=== PATIENT | male | born 1955 | race Two or more races ===

== ENCOUNTER 2018-01-17 20:43 | Inpatient (IN) | payer OTHER ==
[~2018-01-17] VITALS: Ht 172.7 cm; Wt 73.2 kg
[2018-01-17] MEDS ORDERED: PROPOFOL 10 MG/ML, 20ML ONE ×2 (20:47→21:08)
[2018-01-17] MEDS ORDERED: OCTREOTIDE 500 MCG in SODIUM CHLORIDE 0.9% 249 ML IV PRN (21:25)
[2018-01-17] MEDS ORDERED: SODIUM CHLORIDE FLUSH 10ML SYR IVF ONE (21:30)
[2018-01-17] MEDS ORDERED: PLEASE ENTER ALLERGIES MC SCH (21:30)
[2018-01-17] MEDS ORDERED: PROPOFOL 10 MG/ML, 20ML IVPush ONE (21:30)
[2018-01-17] MEDS ORDERED: CEFTRIAXONE PMX 2GM/50ML 50 ML IVPB ONE (22:00)
[2018-01-17] MEDS ORDERED: ONDANSETRON ODT 4 MG PO PRN (22:30)
[2018-01-17] MEDS ORDERED: POLYETHYLENE GLYCOL 17 GM PACKET PO PRN (22:30)
[2018-01-17] MEDS ORDERED: BISACODYL 10 MG SUPP PR PRN (22:30)
[2018-01-17] MEDS ORDERED: hydrALAzine 20 MG/ML, 1ML IVPush PRN (22:30)
[2018-01-17] MEDS ORDERED: DOCUSATE 100 MG CAPSULE PO PRN (22:30)
[2018-01-17] MEDS ORDERED: ONDANSETRON 2MG/ML, 2ML IVPush PRN (22:30)
[2018-01-17] MEDS ORDERED: PROMETHAZINE 25 MG/ML, 1ML IM PRN (22:30)
[2018-01-17 22:57] VITALS: BP 99/63
[2018-01-17] MEDS: SODIUM CHLORIDE 0.9% 1,000 ML IV SCH (23:20)
[2018-01-17 23:51] LABS: HEMOGLOBIN A1C 5.1 % (4.2-6.3)
[2018-01-17 23:52] LABS: FREE T4 (FREE THYROXINE) 1.02 ng/dL (0.76-1.46); THYROID STIMULATING HORMONE 1.38 mIU/L (0.358-3.740)
[2018-01-18] VITALS (12 sets, daily range): BP systolic 78–122; BP diastolic 52–80
[2018-01-18] MEDS: CEFTRIAXONE PMX 2GM/50ML 50 ML IVPB SCH ×2 (01:55→23:27)
[2018-01-18] MEDS ORDERED: SODIUM CHLORIDE 0.9% 1,000ML IVBOLUS ONE (02:00)
[2018-01-18 04:59] LABS: MEAN CORPUSCULAR HEMOGLOBIN 32.1 pg (27.5-34.5); MEAN CORPUSCULAR HGB CONC 34.1 g/dL (33.2-36.2); RED BLOOD COUNT 2.17 x10^6/uL (4.38-5.82); RED CELL DISTRIBUTION WIDTH 14.4 % (9.4-14.8)
[2018-01-18 05:10] LABS: CHLORIDE 113 mmol/L (98-107)
[2018-01-18 05:21] LABS: ALANINE AMINOTRANSFERASE 34 U/L (12-78); ALBUMIN 2.1 g/dL (3.4-5.0); ALKALINE PHOSPHATASE 91 U/L (45-117); ANION GAP 10 mmol/L (5-15); BILIRUBIN,TOTAL 1.3 mg/dL (0.2-1.0); CALCIUM 7.5 mg/dL (8.5-10.1); CHOL/HDL RATIO 2.3; CHOLESTEROL, TOTAL 87 mg/dL (140-239); CREATININE 0.94 mg/dL (0.7-1.3); HDL CHOL % 44 % (26-37); HDL CHOLESTEROL (DIRECT) 38 mg/dL (40-60); LDL CHOLESTEROL,CALCULATED 36 mg/dL (54-169); LDL/HDL RATIO 0.9 (0.5-3.0); TOTAL PROTEIN 5.8 g/dL (6.4-8.2); TRIGLYCERIDES 65 mg/dL (50-200); VLDL CHOLESTEROL 13 mg/dL (0-25)
[2018-01-18 05:44] LABS: BASOPHILS # (AUTO) 0.02 x10^3/uL (0-0.1); BASOPHILS % (AUTO) 0 % (0-1); EOSINOPHILS # (AUTO) 0.05 x10^3/uL (0-0.4); EOSINOPHILS % (AUTO) 1 % (1-7); LYMPHOCYTES # (AUTO) 1.96 x10^3/uL (1-3.4); LYMPHOCYTES % (AUTO) 22 % (22-44); MD SCAN; MEAN PLATELET VOLUME 8.3 fL (7.4-10.4); MONOCYTES # (AUTO) 0.82 x10^3/uL (0.2-0.8); MONOCYTES % (AUTO) 9 % (2-9); NEUTROPHILS # (AUTO) 5.91 x10^3/uL (1.8-6.8); NEUTROPHILS % (AUTO) 67 % (42-75); PLATELET COUNT 86 x10^3/uL (130-400)
[2018-01-18] MEDS ORDERED: SPIR50TA4 PO (07:27)
[2018-01-18] MEDS ORDERED: FURO20TA3 PO (07:27)
[2018-01-18] MEDS: SODIUM CHLORIDE 0.9% 1,000 ML IV SCH (09:10)
[2018-01-18] MEDS: PANTOPRAZOLE 40 MG IV IVPush SCH (09:10)
[2018-01-18] MEDS ORDERED: MAGNESIUM SULFATE PMX 4GM/100M 100 ML IV ONE (09:30)
[2018-01-18] MEDS: SPIRONOLACTONE 50 MG TABLET PO SCH (19:50)
[2018-01-19 02:46] VITALS: BP 109/55
[2018-01-19 06:23] LABS: ANION GAP 7 mmol/L (5-15); CALCIUM 7.8 mg/dL (8.5-10.1); CHLORIDE 108 mmol/L (98-107); CREATININE 0.73 mg/dL (0.7-1.3)
[2018-01-19 06:33] LABS: MEAN CORPUSCULAR HEMOGLOBIN 32.4 pg (27.5-34.5); MEAN CORPUSCULAR HGB CONC 34.4 g/dL (33.2-36.2); MEAN CORPUSCULAR VOLUME 94.2 fL (81-97); MEAN PLATELET VOLUME 8.2 fL (7.4-10.4); PLATELET COUNT 88 x10^3/uL (130-400); RED BLOOD COUNT 2.51 x10^6/uL (4.38-5.82); RED CELL DISTRIBUTION WIDTH 14.1 % (9.4-14.8)
[2018-01-19 07:21] LABS: MD SCAN
[2018-01-19 07:22] LABS: BASOPHILS # (AUTO) 0.04 x10^3/uL (0-0.1); BASOPHILS % (AUTO) 1 % (0-1); EOSINOPHILS # (AUTO) 0.18 x10^3/uL (0-0.4); EOSINOPHILS % (AUTO) 3 % (1-7); LYMPHOCYTES # (AUTO) 0.93 x10^3/uL (1-3.4); LYMPHOCYTES % (AUTO) 14 % (22-44); MONOCYTES # (AUTO) 0.59 x10^3/uL (0.2-0.8); MONOCYTES % (AUTO) 9 % (2-9); NEUTROPHILS # (AUTO) 4.84 x10^3/uL (1.8-6.8); NEUTROPHILS % (AUTO) 74 % (42-75)
[2018-01-19 08:08] VITALS: BP 92/58
[2018-01-19] MEDS: PANTOPRAZOLE 40 MG IV IVPush SCH (08:23)
[2018-01-19] MEDS: SPIRONOLACTONE 50 MG TABLET PO SCH ×2 (08:24→20:20)
[2018-01-19] MEDS: FUROSEMIDE 20 MG TABLET PO SCH (08:24)
[2018-01-19] MEDS: prednisOLONE 15 MG/5 ML ORAL SOLN PO SCH (12:07)
[2018-01-19 14:52] VITALS: BP 114/77
[2018-01-19 20:34] VITALS: BP 123/73
[2018-01-19] MEDS: CEFTRIAXONE PMX 2GM/50ML 50 ML IVPB SCH (23:17)
[2018-01-20 01:02] VITALS: BP 109/74
[2018-01-20 05:36] LABS: MEAN CORPUSCULAR HEMOGLOBIN 32.5 pg (27.5-34.5); MEAN CORPUSCULAR HGB CONC 34.6 g/dL (33.2-36.2); MEAN CORPUSCULAR VOLUME 93.9 fL (81-97); PLATELET COUNT 78 x10^3/uL (130-400); RED BLOOD COUNT 2.25 x10^6/uL (4.38-5.82); RED CELL DISTRIBUTION WIDTH 14.1 % (9.4-14.8)
[2018-01-20 05:38] LABS: CALCIUM 7.7 mg/dL (8.5-10.1); CHLORIDE 105 mmol/L (98-107)
[2018-01-20 05:41] LABS: ANION GAP 10 mmol/L (5-15); CREATININE 0.61 mg/dL (0.7-1.3)
[2018-01-20 05:55] LABS: BASOPHILS # (AUTO) 0.02 x10^3/uL (0-0.1); BASOPHILS % (AUTO) 1 % (0-1); EOSINOPHILS # (AUTO) 0.22 x10^3/uL (0-0.4); EOSINOPHILS % (AUTO) 4 % (1-7); LYMPHOCYTES # (AUTO) 1.36 x10^3/uL (1-3.4); LYMPHOCYTES % (AUTO) 28 % (22-44); MD SCAN; MONOCYTES # (AUTO) 0.59 x10^3/uL (0.2-0.8); MONOCYTES % (AUTO) 12 % (2-9); NEUTROPHILS # (AUTO) 2.77 x10^3/uL (1.8-6.8); NEUTROPHILS % (AUTO) 56 % (42-75)
[2018-01-20 07:49] VITALS: BP 98/61
[2018-01-20] MEDS: OMEPRAZOLE 20 MG CAPSULE.DR PO SCH (10:30)
[2018-01-20] MEDS: prednisOLONE 15 MG/5 ML ORAL SOLN PO SCH (10:30)
[2018-01-20] MEDS: FUROSEMIDE 20 MG TABLET PO SCH (10:31)
[2018-01-20] MEDS: SPIRONOLACTONE 50 MG TABLET PO SCH ×2 (10:31→21:40)
[2018-01-20 12:08] VITALS: BP 103/73
[2018-01-20 20:09] VITALS: BP 101/67
[2018-01-20] MEDS: CEFTRIAXONE PMX 2GM/50ML 50 ML IVPB SCH (22:50)
[2018-01-21 00:09] VITALS: BP 120/78
[2018-01-21 05:58] LABS: ANION GAP 7 mmol/L (5-15); CALCIUM 7.7 mg/dL (8.5-10.1); CHLORIDE 102 mmol/L (98-107)
[2018-01-21 06:01] LABS: CREATININE 0.64 mg/dL (0.7-1.3)
[2018-01-21 06:02] LABS: MEAN CORPUSCULAR HEMOGLOBIN 31.6 pg (27.5-34.5); MEAN CORPUSCULAR HGB CONC 33.9 g/dL (33.2-36.2); MEAN CORPUSCULAR VOLUME 93.2 fL (81-97); MEAN PLATELET VOLUME 8.1 fL (7.4-10.4); PLATELET COUNT 88 x10^3/uL (130-400); RED BLOOD COUNT 2.42 x10^6/uL (4.38-5.82); RED CELL DISTRIBUTION WIDTH 13.8 % (9.4-14.8)
[2018-01-21 06:49] LABS: BASOPHILS # (AUTO) 0.03 x10^3/uL (0-0.1); BASOPHILS % (AUTO) 0 % (0-1); EOSINOPHILS # (AUTO) 0.22 x10^3/uL (0-0.4); EOSINOPHILS % (AUTO) 3 % (1-7); LYMPHOCYTES # (AUTO) 1.65 x10^3/uL (1-3.4); LYMPHOCYTES % (AUTO) 24 % (22-44); MD SCAN; MONOCYTES # (AUTO) 0.68 x10^3/uL (0.2-0.8); MONOCYTES % (AUTO) 10 % (2-9); NEUTROPHILS # (AUTO) 4.18 x10^3/uL (1.8-6.8); NEUTROPHILS % (AUTO) 62 % (42-75)
[2018-01-21 06:58] VITALS: BP 100/70
[2018-01-21] MEDS ORDERED: POTASSIUM CHLORIDE 20 MEQ TAB.ER.PRT PO ONE (07:30)
[2018-01-21] MEDS: prednisOLONE 15 MG/5 ML ORAL SOLN PO SCH (08:28)
[2018-01-21] MEDS: OMEPRAZOLE 20 MG CAPSULE.DR PO SCH (08:28)
[2018-01-21] MEDS: SPIRONOLACTONE 50 MG TABLET PO SCH ×2 (08:29→20:36)
[2018-01-21] MEDS: FUROSEMIDE 20 MG TABLET PO SCH (08:29)
[2018-01-21] MEDS ORDERED: MAGNESIUM SULFATE PMX 2GM/50ML 50 ML IV ONE (10:00)
[2018-01-21 13:23] VITALS: BP 105/71
[2018-01-21 13:31] VITALS: BP 98/70
[2018-01-21 14:01] VITALS: BP 105/71
[2018-01-21 18:59] VITALS: BP 108/69
[2018-01-21] MEDS: CEFTRIAXONE PMX 2GM/50ML 50 ML IVPB SCH (23:07)
[2018-01-22 00:29] VITALS: BP 138/96
[2018-01-22 06:23] LABS: BASOPHILS # (AUTO) 0.05 x10^3/uL (0-0.1); BASOPHILS % (AUTO) 1 % (0-1); EOSINOPHILS % (AUTO) 4 % (1-7); LYMPHOCYTES # (AUTO) 1.88 x10^3/uL (1-3.4); LYMPHOCYTES % (AUTO) 26 % (22-44); MD NO; MEAN CORPUSCULAR HEMOGLOBIN 32.2 pg (27.5-34.5); MEAN CORPUSCULAR VOLUME 94.6 fL (81-97); MEAN PLATELET VOLUME 8.1 fL (7.4-10.4); MONOCYTES # (AUTO) 0.72 x10^3/uL (0.2-0.8); MONOCYTES % (AUTO) 10 % (2-9); NEUTROPHILS # (AUTO) 4.33 x10^3/uL (1.8-6.8); NEUTROPHILS % (AUTO) 60 % (42-75); PLATELET COUNT 105 x10^3/uL (130-400); RED CELL DISTRIBUTION WIDTH 14.2 % (9.4-14.8)
[2018-01-22 06:35] VITALS: BP 106/73
[2018-01-22 06:36] LABS: ALBUMIN 2.2 g/dL (3.4-5.0); ANION GAP 7 mmol/L (5-15); CALCIUM 8.3 mg/dL (8.5-10.1); CHLORIDE 105 mmol/L (98-107)
[2018-01-22 08:01] VITALS: BP 104/71
[2018-01-22 08:03] VITALS: BP 100/73
[2018-01-22 08:04] VITALS: BP 113/80
[2018-01-22] MEDS: SPIRONOLACTONE 50 MG TABLET PO SCH (08:05)
[2018-01-22] MEDS: FUROSEMIDE 20 MG TABLET PO SCH (08:05)
[2018-01-22] MEDS: prednisOLONE 15 MG/5 ML ORAL SOLN PO SCH (08:05)
[2018-01-22] MEDS: OMEPRAZOLE 20 MG CAPSULE.DR PO SCH (08:05)
[2018-01-22] MEDS ORDERED: SPIR50TA PO (08:41)
[2018-01-22] MEDS ORDERED: OMEP-110 PO (08:41)
[2018-01-22] MEDS ORDERED: PRED15SO3 PO (08:43)
[2018-01-22] MEDS ORDERED: FURO-93 PO (11:49)
[2018-01-22 14:02] VITALS: BP_SYST 116; BP_SYST 117; BP_SYST 118; BP_DIAS 61; BP_DIAS 68; BP_DIAS 81
== END 2018-01-22 16:27 | disposition home or self-care (01) | DRG 432 ==
LOC: ED 21:53 → EDIP 21:54 → ED 22:30 → 4WST 22:49
PROVIDERS: ADMIT Internal Medicine; ATTEND Internal Medicine
PROC: 06L38CZ Occlusion of Esophageal Vein with Extraluminal Device, Via Natural or Artificial Opening Endoscopic (ICD-10-PCS; principal; 2018-01-17 20:20)
PROC: 30233N1 Transfusion of Nonautologous Red Blood Cells into Peripheral Vein, Percutaneous Approach (ICD-10-PCS; 2018-01-18)
DX: K70.31 Alcoholic cirrhosis of liver with ascites (principal); I85.11 Secondary esophageal varices with bleeding; K76.6 Portal hypertension; D62 Acute posthemorrhagic anemia; K31.89 Other diseases of stomach and duodenum; F10.20 Alcohol dependence, uncomplicated; G47.00 Insomnia, unspecified; E11.65 Type 2 diabetes mellitus with hyperglycemia; D69.6 Thrombocytopenia, unspecified; I10 Essential (primary) hypertension; J44.9 Chronic obstructive pulmonary disease, unspecified; F32.9 Major depressive disorder, single episode, unspecified; K70.11 Alcoholic hepatitis with ascites
CPT/HCPCS: 36415; 36430; 70450; 76700; 80048; 80053; 80061; 82040; 82105; 82962; 83036; 83605; 83735; 84100; 84439; 84443; 85014; 85018; 85025; 86850; 86900; 86923; 87040; 93005; 99152; 99153; G0378; J0696; J2354; C9113; J3475; J7030; J7050; J7510; P9016

== ENCOUNTER 2018-02-17 15:16 | Emergency (ER) | payer MEDICAID ==
[~2018-02-17] VITALS: Ht 170.2 cm; Wt 77.1 kg
[~2018-02-17 15:16] MED LIST: FURO-93 PO; FURO20TA3 PO; OMEP-110 PO; PRED15SO3 PO; SPIR50TA PO; SPIR50TA4 PO
[2018-02-17 16:01] LABS: ALANINE AMINOTRANSFERASE 38 U/L (12-78); ALBUMIN 2.5 g/dL (3.4-5.0); ANION GAP 8 mmol/L (5-15); CHLORIDE 105 mmol/L (98-107); CREATININE 0.68 mg/dL (0.7-1.3)
[2018-02-17 16:03] LABS: ALKALINE PHOSPHATASE 163 U/L (45-117); BILIRUBIN,TOTAL 1.4 mg/dL (0.2-1.0); TOTAL PROTEIN 7.5 g/dL (6.4-8.2)
[2018-02-17 16:11] LABS: MEAN CORPUSCULAR HEMOGLOBIN 25.5 pg (27.5-34.5); MEAN CORPUSCULAR HGB CONC 31.8 g/dL (33.2-36.2); MEAN CORPUSCULAR VOLUME 80.2 fL (81-97); MEAN PLATELET VOLUME 7.9 fL (7.4-10.4); PLATELET COUNT 169 x10^3/uL (130-400); RED BLOOD COUNT 3.17 x10^6/uL (4.38-5.82); RED CELL DISTRIBUTION WIDTH 22.4 % (9.4-14.8)
[2018-02-17 16:34] LABS: MD YES
[2018-02-17 16:36] LABS: BASOS#(MANUAL) 0.06 x10^3/uL (0-0.1); BASOS% (MANUAL) 1 % (0-1); EOS#(MANUAL) 0.26 x10^3/uL (0.0-0.4); EOS% (MANUAL) 4 % (1-7); LYMPH#(MANUAL) 1.15 x10^3/uL (1-3.4); LYMPHS% (MANUAL) 18 % (22-44); MONOS#(MANUAL) 0.58 x10^3/uL (0.3-2.7); MONOS% (MANUAL) 9 % (2-9); SEG#(MANUAL) 4.35 x10^3/uL (1.8-6.8); SEGS% (MANUAL) 68 % (42-75)
[2018-02-17 16:38] LABS: ANISOCYTOSIS 2+; HYPOCHROMIA 2+; MICROCYTOSIS 1+; POLYCHROMASIA 1+
[2018-02-17 16:39] LABS: <PLATELET ESTIMATE> ADEQUATE; <PLT MORPHOLOGY> NORMAL PLT MORPH; SCHISTOCYTES 1+
[2018-02-17 16:52] LABS: INTERNATIONAL NORMALIZED RATIO 1.27 (0.93-1.1); PROTHROMBIN TIME 13.1 Seconds (9.6-11.5)
[2018-02-17 19:42] VITALS: BP 106/75
== END 2018-02-17 20:24 | disposition home or self-care (01) ==
LOC: ED 17:00
DX: K70.31 Alcoholic cirrhosis of liver with ascites (principal); E11.9 Type 2 diabetes mellitus without complications; F17.210 Nicotine dependence, cigarettes, uncomplicated
CPT/HCPCS: 36415; 49083; 80053; 82042; 83615; 83690; 85025; 85610; 85730; 87070; 87205; 89051; 99285

== ENCOUNTER 2018-02-22 12:51 | Emergency (ER) | payer MEDICAID ==
[~2018-02-22] VITALS: Ht 170.2 cm; Wt 78.3 kg
[2018-02-22 13:05] VITALS: BP 111/72
[2018-02-22] MEDS ORDERED: LIDOCAINE-MPF 1%, 5ML ONE (13:10)
[2018-02-22] MEDS ORDERED: SODIUM CHLORIDE FLUSH 10ML SYR IVF ONE (13:30)
[2018-02-22 13:32] LABS: MD YES; MEAN CORPUSCULAR HEMOGLOBIN 24.9 pg (27.5-34.5); MEAN CORPUSCULAR HGB CONC 32.1 g/dL (33.2-36.2); MEAN CORPUSCULAR VOLUME 77.6 fL (81-97); MEAN PLATELET VOLUME 8.4 fL (7.4-10.4); PLATELET COUNT 162 x10^3/uL (130-400); RED CELL DISTRIBUTION WIDTH 22.7 % (9.4-14.8)
[2018-02-22 13:34] LABS: ALBUMIN 2.4 g/dL (3.4-5.0); ANION GAP 6 mmol/L (5-15); CALCIUM 8.1 mg/dL (8.5-10.1); CHLORIDE 104 mmol/L (98-107)
[2018-02-22 13:38] LABS: ALANINE AMINOTRANSFERASE 37 U/L (12-78); ALKALINE PHOSPHATASE 157 U/L (45-117); BILIRUBIN,TOTAL 1.4 mg/dL (0.2-1.0); CREATININE 0.71 mg/dL (0.7-1.3); TOTAL PROTEIN 7.3 g/dL (6.4-8.2)
[2018-02-22 14:23] LABS: LYMPH#(MANUAL) 1.02 x10^3/uL (1-3.4); LYMPHS% (MANUAL) 15 % (22-44); MONOS#(MANUAL) 0.14 x10^3/uL (0.3-2.7); MONOS% (MANUAL) 2 % (2-9); SEG#(MANUAL) 5.17 x10^3/uL (1.8-6.8); SEGS% (MANUAL) 76 % (42-75)
[2018-02-22 14:24] LABS: BASOS#(MANUAL) 0.07 x10^3/uL (0-0.1); BASOS% (MANUAL) 1 % (0-1); EOS#(MANUAL) 0.41 x10^3/uL (0.0-0.4); EOS% (MANUAL) 6 % (1-7)
[2018-02-22 14:26] LABS: ANISOCYTOSIS 2+; HYPOCHROMIA 2+; MICROCYTOSIS 2+
[2018-02-22 14:27] LABS: <PLATELET ESTIMATE> ADEQUATE; <PLT MORPHOLOGY> NORMAL PLT MORPH
== END 2018-02-22 14:31 | disposition left against medical advice (07) ==
LOC: ED 14:20
DX: R18.8 Other ascites (principal)
CPT/HCPCS: 36415; 49083; 80053; 85025; 99285

== ENCOUNTER 2018-02-28 14:03 | Emergency (ER) | payer MEDICAID ==
[~2018-02-28] VITALS: Ht 170.2 cm; Wt 75.5 kg
[2018-02-28] MEDS ORDERED: LIDOCAINE-MPF 1%, 5ML ONE (14:40)
[2018-02-28 14:45] LABS: MEAN CORPUSCULAR HEMOGLOBIN 24.3 pg (27.5-34.5); MEAN CORPUSCULAR HGB CONC 31.8 g/dL (33.2-36.2); MEAN CORPUSCULAR VOLUME 76.5 fL (81-97); MEAN PLATELET VOLUME 7.9 fL (7.4-10.4); PLATELET COUNT 155 x10^3/uL (130-400); RED BLOOD COUNT 3.06 x10^6/uL (4.38-5.82); RED CELL DISTRIBUTION WIDTH 23.8 % (9.4-14.8)
[2018-02-28 14:49] LABS: INTERNATIONAL NORMALIZED RATIO 1.28 (0.93-1.1); PROTHROMBIN TIME 13.4 Seconds (9.6-11.5)
[2018-02-28 14:53] LABS: ALBUMIN 2.3 g/dL (3.4-5.0); ANION GAP 6 mmol/L (5-15); CALCIUM 7.8 mg/dL (8.5-10.1); CHLORIDE 103 mmol/L (98-107)
[2018-02-28 14:56] LABS: ALANINE AMINOTRANSFERASE 34 U/L (12-78); BILIRUBIN,TOTAL 0.8 mg/dL (0.2-1.0); CREATININE 0.79 mg/dL (0.7-1.3)
[2018-02-28 14:57] LABS: ALKALINE PHOSPHATASE 155 U/L (45-117)
[2018-02-28 15:23] LABS: MD YES
[2018-02-28 15:25] LABS: EOS#(MANUAL) 0.36 x10^3/uL (0.0-0.4); EOS% (MANUAL) 6 % (1-7); LYMPH#(MANUAL) 1.02 x10^3/uL (1-3.4); LYMPHS% (MANUAL) 17 % (22-44); MONOS#(MANUAL) 0.42 x10^3/uL (0.3-2.7); MONOS% (MANUAL) 7 % (2-9); SEGS% (MANUAL) 70 % (42-75)
[2018-02-28 15:27] LABS: ANISOCYTOSIS 2+
[2018-02-28 15:28] LABS: HYPOCHROMIA 2+; MICROCYTOSIS 2+; POLYCHROMASIA 1+
[2018-02-28 15:29] LABS: <PLATELET ESTIMATE> ADEQUATE; <PLT MORPHOLOGY> NORMAL PLT MORPH
[2018-02-28 15:44] VITALS: BP 132/78
== END 2018-02-28 16:04 | disposition home or self-care (01) ==
LOC: ED 15:58
DX: K70.31 Alcoholic cirrhosis of liver with ascites (principal); I10 Essential (primary) hypertension; E11.9 Type 2 diabetes mellitus without complications; F17.200 Nicotine dependence, unspecified, uncomplicated
CPT/HCPCS: 36415; 49083; 80053; 85025; 85610; 85730; 99285

== ENCOUNTER 2018-03-06 15:31 | Emergency (ER) | payer MEDICAID ==
[~2018-03-06] VITALS: Ht 170.2 cm; Wt 76.0 kg
[2018-03-06 16:41] LABS: MEAN CORPUSCULAR HEMOGLOBIN 23.6 pg (27.5-34.5); MEAN CORPUSCULAR HGB CONC 31.9 g/dL (33.2-36.2); MEAN CORPUSCULAR VOLUME 73.8 fL (81-97); MEAN PLATELET VOLUME 8.3 fL (7.4-10.4); PLATELET COUNT 171 x10^3/uL (130-400); RED CELL DISTRIBUTION WIDTH 22.6 % (9.4-14.8)
[2018-03-06 16:49] LABS: INTERNATIONAL NORMALIZED RATIO 1.28 (0.93-1.1); PROTHROMBIN TIME 13.4 Seconds (9.6-11.5)
[2018-03-06 16:51] LABS: ALANINE AMINOTRANSFERASE 37 U/L (12-78); ALBUMIN 2.5 g/dL (3.4-5.0); ANION GAP 8 mmol/L (5-15); CALCIUM 7.9 mg/dL (8.5-10.1); CHLORIDE 102 mmol/L (98-107); CREATININE 0.82 mg/dL (0.7-1.3)
[2018-03-06 16:54] LABS: ALKALINE PHOSPHATASE 168 U/L (45-117); BILIRUBIN,TOTAL 1.2 mg/dL (0.2-1.0); TOTAL PROTEIN 7.2 g/dL (6.4-8.2)
[2018-03-06 17:02] LABS: BASOPHILS # (AUTO) 0.03 x10^3/uL (0-0.1); BASOPHILS % (AUTO) 0 % (0-1); EOSINOPHILS # (AUTO) 0.16 x10^3/uL (0-0.4); EOSINOPHILS % (AUTO) 2 % (1-7); LYMPHOCYTES # (AUTO) 1.28 x10^3/uL (1-3.4); LYMPHOCYTES % (AUTO) 19 % (22-44); MD MORPH REVIEW ONLY; MONOCYTES % (AUTO) 6 % (2-9); NEUTROPHILS # (AUTO) 4.89 x10^3/uL (1.8-6.8); NEUTROPHILS % (AUTO) 72 % (42-75)
[2018-03-06 17:03] LABS: ANISOCYTOSIS 2+; HYPOCHROMIA 1+; POLYCHROMASIA 1+
[2018-03-06 17:04] LABS: <PLATELET ESTIMATE> ADEQUATE; <PLT MORPHOLOGY> NORMAL PLT MORPH; MICROCYTOSIS 1+
[2018-03-06] MEDS ORDERED: LIDOCAINE-MPF 1%, 5ML ONE ×2 (17:21→17:22)
[2018-03-06 18:04] VITALS: BP 121/81
== END 2018-03-06 18:06 | disposition home or self-care (01) ==
LOC: ED 17:45
DX: K70.30 Alcoholic cirrhosis of liver without ascites (principal); I10 Essential (primary) hypertension; E11.9 Type 2 diabetes mellitus without complications
CPT/HCPCS: 36415; 49083; 80053; 83690; 85025; 85610; 99284

== ENCOUNTER 2018-03-14 09:22 | Emergency (ER) | payer MEDICAID ==
[~2018-03-14] VITALS: Ht 170.2 cm; Wt 80.1 kg
[2018-03-14 09:30] VITALS: BP 108/73
[2018-03-14] MEDS ORDERED: OMEP-110 PO (10:08)
[2018-03-14] MEDS ORDERED: SPIR50TA4 PO (10:09)
[2018-03-14] MEDS ORDERED: LIDOCAINE-MPF 1%, 5ML ONE (10:27)
== END 2018-03-14 11:31 | disposition left against medical advice (07) ==
LOC: ED 10:00
DX: K70.31 Alcoholic cirrhosis of liver with ascites (principal); Z87.891 Personal history of nicotine dependence; I10 Essential (primary) hypertension; E11.9 Type 2 diabetes mellitus without complications; I85.00 Esophageal varices without bleeding
CPT/HCPCS: 49083; 99285

== ENCOUNTER 2018-03-22 07:56 | Emergency (ER) | payer MEDICAID ==
[~2018-03-22] VITALS: Ht 170.2 cm; Wt 76.4 kg
[2018-03-22 08:58] VITALS: BP 106/71
== END 2018-03-22 09:45 | disposition home or self-care (01) ==
LOC: ED 09:16
DX: R10.84 Generalized abdominal pain (principal); R14.0 Abdominal distension (gaseous); I10 Essential (primary) hypertension
CPT/HCPCS: 99283

== ENCOUNTER 2018-04-02 10:03 | Emergency (ER) | payer MEDICAID ==
[~2018-04-02] VITALS: Ht 170.2 cm; Wt 80.7 kg
[2018-04-02 11:48] LABS: INTERNATIONAL NORMALIZED RATIO 1.23 (0.93-1.1); PROTHROMBIN TIME 12.9 Seconds (9.6-11.5)
[2018-04-02 11:56] LABS: ALANINE AMINOTRANSFERASE 31 U/L (12-78); ALBUMIN 2.5 g/dL (3.4-5.0); ANION GAP 6 mmol/L (5-15); CALCIUM 7.6 mg/dL (8.5-10.1); CHLORIDE 109 mmol/L (98-107); CREATININE 0.67 mg/dL (0.7-1.3)
[2018-04-02 11:59] LABS: ALKALINE PHOSPHATASE 167 U/L (45-117); BILIRUBIN,TOTAL 1.1 mg/dL (0.2-1.0); TOTAL PROTEIN 7.5 g/dL (6.4-8.2)
[2018-04-02 12:49] LABS: MEAN CORPUSCULAR HEMOGLOBIN 21.2 pg (27.5-34.5); MEAN CORPUSCULAR HGB CONC 31.7 g/dL (33.2-36.2); MEAN PLATELET VOLUME 8.3 fL (7.4-10.4); PLATELET COUNT 158 x10^3/uL (130-400); RED BLOOD COUNT 3.38 x10^6/uL (4.38-5.82); RED CELL DISTRIBUTION WIDTH 21.6 % (9.4-14.8)
[2018-04-02 12:51] LABS: MD YES
[2018-04-02 12:55] LABS: ANISOCYTOSIS 2+; HYPOCHROMIA 1+; LYMPH#(MANUAL) 0.95 x10^3/uL (1-3.4); LYMPHS% (MANUAL) 18 % (22-44); MICROCYTOSIS 1+; MONOS#(MANUAL) 0.21 x10^3/uL (0.3-2.7); MONOS% (MANUAL) 4 % (2-9); SEG#(MANUAL) 4.13 x10^3/uL (1.8-6.8); SEGS% (MANUAL) 78 % (42-75)
[2018-04-02 12:58] LABS: <PLATELET ESTIMATE> ADEQUATE; <PLT MORPHOLOGY> NORMAL PLT MORPH
[2018-04-02] MEDS ORDERED: LIDOCAINE-MPF 1%, 5ML ONE ×2 (15:05)
[2018-04-02 15:40] VITALS: BP 114/69
== END 2018-04-02 16:29 | disposition left against medical advice (07) ==
LOC: ED 12:46
DX: K70.31 Alcoholic cirrhosis of liver with ascites (principal); D50.9 Iron deficiency anemia, unspecified; I10 Essential (primary) hypertension; E11.9 Type 2 diabetes mellitus without complications
CPT/HCPCS: 36415; 49083; 80053; 82140; 85025; 85610; 85730; 99285

== ENCOUNTER 2018-04-25 07:17 | Emergency (ER) | payer MEDICAID ==
[~2018-04-25] VITALS: Ht 170.2 cm; Wt 85.1 kg
--- NOTE | 2018-04-25 08:07 | NUR ---
seen by PA
[2018-04-25] MEDS ORDERED: LIDOCAINE-MPF 1%, 5ML ONE (08:24)
--- NOTE | 2018-04-25 08:30 | NUR ---
pt to IR
[2018-04-25 08:39] LABS: ALANINE AMINOTRANSFERASE 29 U/L (12-78); ALBUMIN 2.3 g/dL (3.4-5.0); ANION GAP 6 mmol/L (5-15); CALCIUM 7.9 mg/dL (8.5-10.1); CHLORIDE 106 mmol/L (98-107); CREATININE 0.63 mg/dL (0.7-1.3)
[2018-04-25 08:41] LABS: ALKALINE PHOSPHATASE 156 U/L (45-117); BILIRUBIN,TOTAL 1.4 mg/dL (0.2-1.0); TOTAL PROTEIN 7.1 g/dL (6.4-8.2)
[2018-04-25 08:42] LABS: MEAN CORPUSCULAR HEMOGLOBIN 20.1 pg (27.5-34.5); MEAN CORPUSCULAR HGB CONC 30.8 g/dL (33.2-36.2); MEAN CORPUSCULAR VOLUME 65.3 fL (81-97); MEAN PLATELET VOLUME 8.5 fL (7.4-10.4); PLATELET COUNT 182 x10^3/uL (130-400); RED BLOOD COUNT 3.73 x10^6/uL (4.38-5.82)
[2018-04-25 08:57] LABS: MD YES
[2018-04-25 09:00] LABS: EOS#(MANUAL) 0.12 x10^3/uL (0.0-0.4); EOS% (MANUAL) 2 % (1-7); LYMPH#(MANUAL) 0.89 x10^3/uL (1-3.4); LYMPHS% (MANUAL) 15 % (22-44); MONOS#(MANUAL) 0.18 x10^3/uL (0.3-2.7); MONOS% (MANUAL) 3 % (2-9); SEG#(MANUAL) 4.72 x10^3/uL (1.8-6.8); SEGS% (MANUAL) 80 % (42-75)
[2018-04-25 09:01] LABS: <PLATELET ESTIMATE> ADEQUATE; <PLT MORPHOLOGY> NORMAL PLT MORPH; ANISOCYTOSIS 2+; HYPOCHROMIA 1+; MICROCYTOSIS 1+
--- NOTE | 2018-04-25 09:06 | NUR ---
pt returned from IR, upright on gurney awake & more comfortable, responds approp to staff, NAD, comfort measures provided, call light within reach.
[2018-04-25 09:56] VITALS: BP 138/87
--- NOTE | 2018-04-25 10:03 | NUR ---
Patient given discharge instructions and they have confirmed that they understand the instructions. Patient ambulatory with steady gait.
== END 2018-04-25 10:07 | disposition home or self-care (01) ==
LOC: ED 09:59
DX: K70.31 Alcoholic cirrhosis of liver with ascites (principal); E11.9 Type 2 diabetes mellitus without complications; I10 Essential (primary) hypertension
CPT/HCPCS: 36415; 49083; 80053; 83690; 85025; 99285

== ENCOUNTER 2018-05-08 16:33 | Emergency (ER) | payer MEDICAID ==
[~2018-05-08] VITALS: Ht 170.2 cm; Wt 81.6 kg
[2018-05-08 17:26] LABS: ALANINE AMINOTRANSFERASE 25 U/L (12-78); ALBUMIN 2.2 g/dL (3.4-5.0); ANION GAP 6 mmol/L (5-15); CALCIUM 8.2 mg/dL (8.5-10.1); CHLORIDE 102 mmol/L (98-107)
[2018-05-08 17:29] LABS: ALKALINE PHOSPHATASE 168 U/L (45-117); CREATININE 0.82 mg/dL (0.7-1.3); TOTAL PROTEIN 7.3 g/dL (6.4-8.2)
[2018-05-08 17:31] LABS: MD YES
[2018-05-08 17:39] LABS: MEAN CORPUSCULAR HEMOGLOBIN 20.4 pg (27.5-34.5); MEAN CORPUSCULAR HGB CONC 31.3 g/dL (33.2-36.2); MEAN CORPUSCULAR VOLUME 65.2 fL (81-97); MEAN PLATELET VOLUME 8.3 fL (7.4-10.4); PLATELET COUNT 178 x10^3/uL (130-400); RED BLOOD COUNT 3.69 x10^6/uL (4.38-5.82); RED CELL DISTRIBUTION WIDTH 22.4 % (9.4-14.8)
[2018-05-08 17:56] LABS: EOS#(MANUAL) 0.23 x10^3/uL (0.0-0.4); EOS% (MANUAL) 4 % (1-7); LYMPHS% (MANUAL) 14 % (22-44); MONOS#(MANUAL) 0.17 x10^3/uL (0.3-2.7); MONOS% (MANUAL) 3 % (2-9); SEGS% (MANUAL) 79 % (42-75)
[2018-05-08 17:59] LABS: HYPOCHROMIA 2+; MICROCYTOSIS 1+; POLYCHROMASIA 1+; TARGET CELLS 1+
[2018-05-08 18:01] LABS: OVALOCYTES 1+
[2018-05-08 18:02] LABS: <PLATELET ESTIMATE> ADEQUATE; <PLT MORPHOLOGY> NORMAL PLT MORPH
--- NOTE | 2018-05-08 18:34 | NUR ---
Pt amb to rm 39 from [facility]
--- NOTE | 2018-05-08 19:02 | NUR ---
Pt presents to ED with c/o "rash" on lower left leg. Pt has bilateral edema, erythema, cellulitius, and scabbing on left posterior calf. Pt requesting to "be tapped today with paracentesis." Pt's family member at bedside. Pt states, "I want to live another 20 years. My [facility] doctor won't tap me, he says it won't extend my life." NADN. All safety measures in place. Call light within reach. Provided report to MYLA Treviño. All questions answered.
[2018-05-08 20:53] VITALS: BP 112/76
--- NOTE | 2018-05-08 20:53 | NUR ---
PT BACK FROM GETTING PARACENTESIS. STATES HE IS READY TO GO. DOCTOR NOTIFIED.
== END 2018-05-08 21:55 | disposition home or self-care (01) ==
LOC: ED 19:31
DX: L03.116 Cellulitis of left lower limb (principal); K70.31 Alcoholic cirrhosis of liver with ascites
CPT/HCPCS: 36415; 49083; 80053; 83690; 85025; 99284; 99285

== ENCOUNTER 2018-06-07 19:35 | Emergency (ER) | payer MEDICAID ==
[~2018-06-07] VITALS: Ht 172.7 cm; Wt 89.2 kg
[2018-06-07] MEDS ORDERED: LIDOCAINE 1%, 20ML ONE ×2 (19:56→19:58)
[2018-06-07] MEDS ORDERED: LIDOCAINE-MPF 1%, 5ML ONE (20:02)
[2018-06-07 20:25] LABS: MEAN CORPUSCULAR HEMOGLOBIN 19.7 pg (27.5-34.5); MEAN CORPUSCULAR HGB CONC 30.8 g/dL (33.2-36.2); MEAN CORPUSCULAR VOLUME 63.9 fL (81-97); MEAN PLATELET VOLUME 7.7 fL (7.4-10.4); PLATELET COUNT 205 x10^3/uL (130-400); RED BLOOD COUNT 3.56 x10^6/uL (4.38-5.82); RED CELL DISTRIBUTION WIDTH 19.8 % (9.4-14.8)
[2018-06-07 20:27] LABS: MD YES
[2018-06-07 20:32] LABS: ALANINE AMINOTRANSFERASE 32 U/L (12-78); ALBUMIN 2.3 g/dL (3.4-5.0); ANION GAP 7 mmol/L (5-15); CALCIUM 7.6 mg/dL (8.5-10.1); CHLORIDE 107 mmol/L (98-107)
[2018-06-07 20:34] LABS: ALKALINE PHOSPHATASE 172 U/L (45-117); BILIRUBIN,TOTAL 0.8 mg/dL (0.2-1.0); TOTAL PROTEIN 7.3 g/dL (6.4-8.2)
--- NOTE | 2018-06-07 20:39 | NUR ---
ORDERS REVIEWED, PT RESTING COMFORTABLY. AWAITING IR.
[2018-06-07 20:49] LABS: ANISOCYTOSIS 2+; EOS#(MANUAL) 0.51 x10^3/uL (0.0-0.4); EOS% (MANUAL) 8 % (1-7); LYMPH#(MANUAL) 0.58 x10^3/uL (1-3.4); LYMPHS% (MANUAL) 9 % (22-44); MONOS#(MANUAL) 0.38 x10^3/uL (0.3-2.7); MONOS% (MANUAL) 6 % (2-9); SEG#(MANUAL) 4.93 x10^3/uL (1.8-6.8); SEGS% (MANUAL) 77 % (42-75)
[2018-06-07 20:50] LABS: HYPOCHROMIA 2+; MICROCYTOSIS 1+
[2018-06-07 20:51] LABS: OVALOCYTES 1+; POLYCHROMASIA 1+
[2018-06-07 20:52] LABS: <PLATELET ESTIMATE> ADEQUATE; <PLT MORPHOLOGY> NORMAL PLT MORPH
--- NOTE | 2018-06-07 21:05 | NUR ---
PT BACK FROM PARACENTESIS. PT STATES HE FEELS "MUCH BETTER". PT UPDATED ON LAB RESULTS. AWAITING RECHECK BY ERP. CALL LIGHT WITHIN REACH. VSS/UPDATED IN COMPUTER.
[2018-06-07 21:15] VITALS: BP 109/57
== END 2018-06-07 21:41 | disposition home or self-care (01) ==
LOC: ED 20:29
DX: K70.31 Alcoholic cirrhosis of liver with ascites (principal); D64.9 Anemia, unspecified; I10 Essential (primary) hypertension; E11.9 Type 2 diabetes mellitus without complications
CPT/HCPCS: 36415; 49083; 80053; 83690; 85025; 88112; 99285; J3490; 99284

== ENCOUNTER 2018-06-11 15:47 | Emergency (ER) | payer MEDICAID ==
[~2018-06-11] VITALS: Ht 172.7 cm; Wt 84.9 kg
[2018-06-11 15:51] VITALS: BP 114/74
--- NOTE | 2018-06-11 15:55 | NUR ---
pt to ed for increasing abd edema over the last "few weeks". hx alc cirrhosis. connected to monitors. vss. pa to bedside for assessment. awating orders.
[2018-06-11] MEDS ORDERED: FURO20TA3 PO (16:07)
[2018-06-11] MEDS ORDERED: SPIR100T4 PO (16:07)
--- NOTE | 2018-06-11 16:45 | NUR ---
pt to ir
--- NOTE | 2018-06-11 17:33 | NUR ---
pt back from ir.
== END 2018-06-11 18:06 | disposition home or self-care (01) ==
LOC: ED 16:30
DX: K70.31 Alcoholic cirrhosis of liver with ascites (principal); I10 Essential (primary) hypertension; E11.9 Type 2 diabetes mellitus without complications
CPT/HCPCS: 49083; 99285

== ENCOUNTER 2018-06-19 23:53 | Emergency (ER) | payer MEDICAID ==
[~2018-06-19] VITALS: Ht 172.7 cm; Wt 92.6 kg
[~2018-06-19 23:53] MED LIST changes: +SPIR100T4 PO
[2018-06-19 23:58] VITALS: BP 124/74
--- NOTE | 2018-06-20 00:15 | NUR ---
TASK RN: CODY HAMILTON SAW PT IN TRIAGE. PT STATES THAT HE WILL COME BACK IN THE MORNING WHEN "THE ER ISN'T SO BUSY".
== END 2018-06-20 00:18 | disposition home or self-care (01) ==
LOC: ED 06-20 00:05
DX: K70.31 Alcoholic cirrhosis of liver with ascites (principal); E11.9 Type 2 diabetes mellitus without complications; I10 Essential (primary) hypertension
CPT/HCPCS: 99281

== ENCOUNTER 2018-06-27 13:48 | Emergency (ER) | payer MEDICAID ==
[~2018-06-27] VITALS: Ht 172.7 cm; Wt 94.6 kg
[2018-06-27 14:20] LABS: MEAN CORPUSCULAR HEMOGLOBIN 20.2 pg (27.5-34.5); MEAN CORPUSCULAR HGB CONC 30.5 g/dL (33.2-36.2); MEAN CORPUSCULAR VOLUME 66.1 fL (81-97); MEAN PLATELET VOLUME 8.1 fL (7.4-10.4); PLATELET COUNT 186 x10^3/uL (130-400); RED BLOOD COUNT 3.75 x10^6/uL (4.38-5.82); RED CELL DISTRIBUTION WIDTH 23.1 % (9.4-14.8)
[2018-06-27 14:27] LABS: ALANINE AMINOTRANSFERASE 32 U/L (12-78); ALBUMIN 2.3 g/dL (3.4-5.0); ANION GAP 4 mmol/L (5-15); CALCIUM 7.9 mg/dL (8.5-10.1); CHLORIDE 109 mmol/L (98-107)
--- NOTE | 2018-06-27 14:28 | NUR ---
SOLANGE-Juany IS AT THE BEDSIDE FOR ASSESSMENT
[2018-06-27 14:29] LABS: ALKALINE PHOSPHATASE 183 U/L (45-117); TOTAL PROTEIN 7.4 g/dL (6.4-8.2)
[2018-06-27 14:50] LABS: BASOPHILS # (AUTO) 0.01 x10^3/uL (0-0.1); BASOPHILS % (AUTO) 0 % (0-1); EOSINOPHILS # (AUTO) 0.53 x10^3/uL (0-0.4); EOSINOPHILS % (AUTO) 9 % (1-7); LYMPHOCYTES % (AUTO) 17 % (22-44); MD MORPH REVIEW ONLY; MONOCYTES # (AUTO) 0.41 x10^3/uL (0.2-0.8); MONOCYTES % (AUTO) 7 % (2-9); NEUTROPHILS # (AUTO) 4.12 x10^3/uL (1.8-6.8); NEUTROPHILS % (AUTO) 68 % (42-75)
--- NOTE | 2018-06-27 14:50 | NUR ---
PT TO IR FOR PARACENTESIS
[2018-06-27 14:51] LABS: INTERNATIONAL NORMALIZED RATIO 1.15 (0.93-1.1)
[2018-06-27] MEDS ORDERED: LIDOCAINE-MPF 1%, 5ML ONE (14:54)
[2018-06-27 14:58] LABS: ANISOCYTOSIS 2+; HYPOCHROMIA 2+; MICROCYTOSIS 2+; POLYCHROMASIA 1+
[2018-06-27 14:59] LABS: OVALOCYTES 1+; TARGET CELLS 1+; TEAR DROPS 1+
[2018-06-27 15:00] LABS: <PLATELET ESTIMATE> ADEQUATE; <PLT MORPHOLOGY> NORMAL PLT MORPH
--- NOTE | 2018-06-27 15:45 | NUR ---
PT RETURNED FROM PARACENTESIS. HE TOLERATED THE PROCEDURE WELL.
[2018-06-27 17:49] VITALS: BP 129/92
== END 2018-06-27 18:10 | disposition home or self-care (01) ==
LOC: ED 14:58
DX: K70.31 Alcoholic cirrhosis of liver with ascites (principal); E11.9 Type 2 diabetes mellitus without complications; I10 Essential (primary) hypertension
CPT/HCPCS: 36415; 49083; 80053; 82042; 83615; 83690; 85025; 85610; 85730; 87070; 87205; 89051; 99285

== ENCOUNTER 2018-07-06 13:20 | Emergency (ER) | payer MEDICAID ==
[~2018-07-06] VITALS: Ht 172.7 cm; Wt 97.1 kg
--- NOTE | 2018-07-06 14:10 | NUR ---
PT C/O INCREASED BADOMINAL SWELLING WITH HX OF LIVER CIRRHOSIS AND ASCITES. PT WAS TAPPED 2 WEEKS AGO WITH 8 LITERS BEING TAKEN OFF. PT DENIES NAY PAIN, N/V/D. PT TO GO TO IR FOR PROCEDURE.
[2018-07-06] MEDS ORDERED: LIDOCAINE-MPF 1%, 5ML ONE (14:22)
[2018-07-06 14:23] LABS: INTERNATIONAL NORMALIZED RATIO 1.22 (0.93-1.1); PROTHROMBIN TIME 12.7 Seconds (9.6-11.5)
[2018-07-06 14:25] LABS: ALBUMIN 2.2 g/dL (3.4-5.0); ANION GAP 5 mmol/L (5-15); CHLORIDE 110 mmol/L (98-107); CREATININE 0.74 mg/dL (0.7-1.3)
[2018-07-06 14:30] LABS: MEAN CORPUSCULAR HEMOGLOBIN 19.9 pg (27.5-34.5); MEAN CORPUSCULAR HGB CONC 30.2 g/dL (33.2-36.2); MEAN CORPUSCULAR VOLUME 65.8 fL (81-97); MEAN PLATELET VOLUME 8.1 fL (7.4-10.4); PLATELET COUNT 217 x10^3/uL (130-400); RED BLOOD COUNT 3.84 x10^6/uL (4.38-5.82); RED CELL DISTRIBUTION WIDTH 22.7 % (9.4-14.8)
--- NOTE | 2018-07-06 14:37 | NUR ---
PT TO IR.
[2018-07-06 15:06] LABS: BASOPHILS # (AUTO) 0.05 x10^3/uL (0-0.1); BASOPHILS % (AUTO) 1 % (0-1); EOSINOPHILS # (AUTO) 0.39 x10^3/uL (0-0.4); EOSINOPHILS % (AUTO) 7 % (1-7); LYMPHOCYTES % (AUTO) 18 % (22-44); MD MORPH REVIEW ONLY; MONOCYTES # (AUTO) 0.65 x10^3/uL (0.2-0.8); MONOCYTES % (AUTO) 11 % (2-9); NEUTROPHILS # (AUTO) 3.64 x10^3/uL (1.8-6.8); NEUTROPHILS % (AUTO) 64 % (42-75)
[2018-07-06 15:07] LABS: ANISOCYTOSIS 2+; HYPOCHROMIA 2+; MICROCYTOSIS 2+; OVALOCYTES 1+; POLYCHROMASIA 1+; TARGET CELLS 1+; TEAR DROPS 1+
[2018-07-06 15:09] LABS: <PLATELET ESTIMATE> ADEQUATE; <PLT MORPHOLOGY> NORMAL PLT MORPH
[2018-07-06 15:41] VITALS: BP 127/75
--- NOTE | 2018-07-06 15:41 | NUR ---
PT BACK FROM IR. 8 LITERS TAKEN OFF. VSS. RESIDENT AT BEDSIDE WITH US MACHINE.
== END 2018-07-06 16:22 | disposition home or self-care (01) ==
LOC: ED 15:54
DX: K70.31 Alcoholic cirrhosis of liver with ascites (principal); Z87.891 Personal history of nicotine dependence
CPT/HCPCS: 36415; 49083; 80048; 82040; 85025; 85610; 85730; 99284

== ENCOUNTER 2018-07-17 17:46 | Emergency (ER) | payer MEDICAID ==
[~2018-07-17] VITALS: Ht 172.7 cm; Wt 94.9 kg
[2018-07-17 18:24] LABS: INTERNATIONAL NORMALIZED RATIO 1.18 (0.93-1.1); PROTHROMBIN TIME 12.3 Seconds (9.6-11.5)
[2018-07-17 18:26] LABS: ALANINE AMINOTRANSFERASE 27 U/L (12-78); ANION GAP 6 mmol/L (5-15); CALCIUM 7.9 mg/dL (8.5-10.1); CHLORIDE 104 mmol/L (98-107); CREATININE 0.91 mg/dL (0.7-1.3)
[2018-07-17 18:28] LABS: ALKALINE PHOSPHATASE 175 U/L (45-117); BILIRUBIN,TOTAL 0.7 mg/dL (0.2-1.0); TOTAL PROTEIN 6.9 g/dL (6.4-8.2)
[2018-07-17 18:39] LABS: MD YES; MEAN CORPUSCULAR HEMOGLOBIN 20.5 pg (27.5-34.5); MEAN CORPUSCULAR HGB CONC 31.1 g/dL (33.2-36.2); MEAN PLATELET VOLUME 7.9 fL (7.4-10.4); PLATELET COUNT 205 x10^3/uL (130-400); RED BLOOD COUNT 3.72 x10^6/uL (4.38-5.82)
[2018-07-17 18:42] LABS: BAND#(MANUAL) 0.06 x10^3/uL; BANDS%(MANUAL) 1 % (0-7); EOS#(MANUAL) 0.25 x10^3/uL (0.0-0.4); EOS% (MANUAL) 4 % (1-7); LYMPH#(MANUAL) 0.25 x10^3/uL (1-3.4); LYMPHS% (MANUAL) 4 % (22-44); MONOS#(MANUAL) 0.19 x10^3/uL (0.3-2.7); MONOS% (MANUAL) 3 % (2-9); SEG#(MANUAL) 5.46 x10^3/uL (1.8-6.8); SEGS% (MANUAL) 88 % (42-75)
[2018-07-17 18:43] LABS: <PLATELET ESTIMATE> ADEQUATE; <PLT MORPHOLOGY> NORMAL PLT MORPH; ANISOCYTOSIS 2+; HYPOCHROMIA 2+; MICROCYTOSIS 2+; OVALOCYTES 1+; POLYCHROMASIA 1+; SPHEROCYTES 1+; TARGET CELLS 1+; TEAR DROPS 1+
--- NOTE | 2018-07-17 18:48 | NUR ---
FROM LOBBY TO ROOM AT THIS TIME. PIT ORDERS COMPLETED. PT RESTING IN ROOM, NADN. AWAITING MD ASSESSMENT AND ADDITIONAL ORDERS AT THIS TIME
--- NOTE | 2018-07-17 19:16 | NUR ---
MD TO BEDSIDE AT THIS TIME. AWAITING FURTHER ORDERS. CALL LIGHT WITHIN REACH. VSS.
[2018-07-17] MEDS ORDERED: LIDOCAINE 1%-EPI 1:100K, 20ML ONE (19:24)
--- NOTE | 2018-07-17 19:32 | NUR ---
US CALLED, SUPPLIES RECEIVED FOR BEDSIDE PARACENTESIS. PT UPDATED, AWAITING MD FOR PROCEDURE. CALL LIGHT WITHIN REACH
--- NOTE | 2018-07-17 20:50 | NUR ---
PT STILL WAITING IN ROOM FOR BEDSIDE PARACENTESIS. NADN, SLEEPING IN BED WITH STABLE VS. AWAITING MD AT THIS TIME. CALL LIGHT WITHIN REACH
--- NOTE | 2018-07-17 21:45 | NUR ---
PARA COMPLETED, ASCITIES CURRENTLY DRAINING
--- NOTE | 2018-07-17 22:27 | NUR ---
AT BEDSIDE TO FIX PARACENTISIS FLOW.
--- NOTE | 2018-07-17 23:07 | NUR ---
REPORT GIVEN TO SINTIA LANZA
--- NOTE | 2018-07-17 23:08 | NUR ---
BS REPORT OF PT FROM MYLA BOYKIN. ASSUMING CARE OF PT AT THIS TIME.
--- NOTE | 2018-07-17 23:36 | NUR ---
PT D/C WITH D/C SUMMARY AND SCRIPTS, AND PROVIDED TAXI VOUCHER PER PT REQUEST. PT AMBULATES TO REGISTRATION DESK WITH STEADY GAIT FOR D/C HOME. PT DENIES ANY OTHER NEEDS PERTAINING TO THIS VISIT.
[2018-07-17 23:40] VITALS: BP 107/57
== END 2018-07-17 23:43 | disposition home or self-care (01) ==
LOC: ED 20:53
DX: K70.31 Alcoholic cirrhosis of liver with ascites (principal); E11.9 Type 2 diabetes mellitus without complications; I10 Essential (primary) hypertension
CPT/HCPCS: 36415; 49083; 80053; 85025; 85610; 85730; 99285

== ENCOUNTER 2018-07-26 11:01 | Emergency (ER) | payer MEDICAID ==
[~2018-07-26] VITALS: Ht 172.7 cm; Wt 87.7 kg
--- NOTE | 2018-07-26 11:55 | NUR ---
PT TO ROOM FROM LOBBY.
[2018-07-26 12:04] LABS: ALANINE AMINOTRANSFERASE 32 U/L (12-78); ALBUMIN 1.9 g/dL (3.4-5.0); ANION GAP 6 mmol/L (5-15); CALCIUM 7.5 mg/dL (8.5-10.1); CHLORIDE 105 mmol/L (98-107); CREATININE 0.66 mg/dL (0.7-1.3)
[2018-07-26 12:06] LABS: MEAN CORPUSCULAR HEMOGLOBIN 20.1 pg (27.5-34.5); MEAN CORPUSCULAR HGB CONC 30.9 g/dL (33.2-36.2); MEAN CORPUSCULAR VOLUME 64.8 fL (81-97); MEAN PLATELET VOLUME 7.6 fL (7.4-10.4); PLATELET COUNT 164 x10^3/uL (130-400); RED BLOOD COUNT 3.81 x10^6/uL (4.38-5.82); RED CELL DISTRIBUTION WIDTH 21.4 % (9.4-14.8)
[2018-07-26 12:10] LABS: ALKALINE PHOSPHATASE 176 U/L (45-117); BILIRUBIN,TOTAL 0.7 mg/dL (0.2-1.0); TOTAL PROTEIN 6.8 g/dL (6.4-8.2)
[2018-07-26 12:27] LABS: MD YES
[2018-07-26 12:34] LABS: BAND#(MANUAL) 0.06 x10^3/uL; BANDS%(MANUAL) 1 % (0-7); EOS% (MANUAL) 14 % (1-7); LYMPH#(MANUAL) 1.28 x10^3/uL (1-3.4); LYMPHS% (MANUAL) 20 % (22-44); METAMYELOCYTES# (MANUAL) 0.06 x10^3/uL (0-0); METAMYELOCYTES% (MANUAL) 1 % (0-1); MONOS#(MANUAL) 0.45 x10^3/uL (0.3-2.7); MONOS% (MANUAL) 7 % (2-9); SEG#(MANUAL) 3.65 x10^3/uL (1.8-6.8); SEGS% (MANUAL) 57 % (42-75)
[2018-07-26 12:35] LABS: ANISOCYTOSIS 2+; HYPOCHROMIA 2+; MICROCYTOSIS 2+; OVALOCYTES 1+; POLYCHROMASIA 1+; TARGET CELLS 1+
[2018-07-26 12:40] LABS: <PLATELET ESTIMATE> ADEQUATE; <PLT MORPHOLOGY> NORMAL PLT MORPH
--- NOTE | 2018-07-26 13:10 | NUR ---
DRESSING PLACED TO PARACENTESIS SITE. PT DISCHARGED HOME.
[2018-07-26 13:11] VITALS: BP 112/80
== END 2018-07-26 13:21 | disposition home or self-care (01) ==
LOC: ED 13:06
DX: K70.30 Alcoholic cirrhosis of liver without ascites (principal); I10 Essential (primary) hypertension; E11.9 Type 2 diabetes mellitus without complications
CPT/HCPCS: 36415; 80053; 85025; 99283

== ENCOUNTER 2018-08-10 10:47 | Emergency (ER) | payer MEDICAID ==
[~2018-08-10] VITALS: Ht 172.7 cm; Wt 85.6 kg
--- NOTE | 2018-08-10 12:09 | NUR ---
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
--- NOTE | 2018-08-10 12:21 | NUR ---
Pt presents to ED for worsening ascites. Pt states scheduled for drain placement tomorrow but increasing SOB. Lungs CTA, 97% RA. Mild edema to BLEs. ABD very distended. Non tender.
[2018-08-10] MEDS ORDERED: LIDOCAINE-MPF 1%, 5ML ONE (12:22)
--- NOTE | 2018-08-10 12:39 | NUR ---
RECEIVED REPORT FROM MYLA SANTANA. PT CURRENTLY IN IR.
[2018-08-10 12:50] LABS: MEAN CORPUSCULAR HEMOGLOBIN 21.3 pg (27.5-34.5); MEAN CORPUSCULAR HGB CONC 31.1 g/dL (33.2-36.2); MEAN CORPUSCULAR VOLUME 68.6 fL (81-97); MEAN PLATELET VOLUME 7.9 fL (7.4-10.4); PLATELET COUNT 129 x10^3/uL (130-400); RED BLOOD COUNT 3.96 x10^6/uL (4.38-5.82); RED CELL DISTRIBUTION WIDTH 27.2 % (9.4-14.8)
[2018-08-10 12:59] LABS: INTERNATIONAL NORMALIZED RATIO 1.17 (0.93-1.1); PROTHROMBIN TIME 12.2 Seconds (9.6-11.5)
[2018-08-10 13:01] LABS: ALBUMIN 2.2 g/dL (3.4-5.0); ANION GAP 6 mmol/L (5-15); CHLORIDE 107 mmol/L (98-107)
[2018-08-10 13:04] LABS: MD YES
[2018-08-10 13:05] LABS: ALANINE AMINOTRANSFERASE 28 U/L (12-78); ALKALINE PHOSPHATASE 153 U/L (45-117); BILIRUBIN,TOTAL 0.8 mg/dL (0.2-1.0)
[2018-08-10 13:09] LABS: EOS% (MANUAL) 5 % (1-7); LYMPH#(MANUAL) 1.02 x10^3/uL (1-3.4); LYMPHS% (MANUAL) 17 % (22-44); MONOS#(MANUAL) 0.24 x10^3/uL (0.3-2.7); MONOS% (MANUAL) 4 % (2-9); SEG#(MANUAL) 4.44 x10^3/uL (1.8-6.8); SEGS% (MANUAL) 74 % (42-75)
[2018-08-10 13:10] LABS: ANISOCYTOSIS 2+; HYPOCHROMIA 2+; MICROCYTOSIS 2+; OVALOCYTES 1+; POLYCHROMASIA 1+
[2018-08-10 13:11] LABS: <PLATELET ESTIMATE> ADEQUATE; <PLT MORPHOLOGY> NORMAL PLT MORPH; TARGET CELLS 1+
--- NOTE | 2018-08-10 13:20 | NUR ---
7.2L OUT PER IR TECH
[2018-08-10 13:30] VITALS: BP 119/77
--- NOTE | 2018-08-10 13:30 | NUR ---
PT RESTING ON GURNEY. NADN. NICHOLES. PT STATES HE FEELS MUCH IMPROVED AFTER IR.
== END 2018-08-10 14:14 | disposition home or self-care (01) ==
LOC: ED 13:22
DX: K70.31 Alcoholic cirrhosis of liver with ascites (principal); I10 Essential (primary) hypertension; E11.9 Type 2 diabetes mellitus without complications
CPT/HCPCS: 36415; 49083; 80053; 85025; 85610; 85730; 99285